=== PATIENT | male | born 1980 | race Asian ===

== ENCOUNTER 2019-10-19 15:05 | Outpatient (CLI) | payer OTHER | END 2019-10-19 15:06 | disposition home or self-care (01) | LOC: DTY/OP 15:05 | PROVIDERS: ATTEND Nurse Practitioner Family | DX: Z00.00 Encounter for general adult medical examination without abnormal findings (principal); E66.01 Morbid (severe) obesity due to excess calories; E78.5 Hyperlipidemia, unspecified; I10 Essential (primary) hypertension | CPT/HCPCS: 97802 ==

== ENCOUNTER 2023-08-26 11:43 | Outpatient (CLI) | payer OTHER | END 2023-08-26 11:44 | disposition home or self-care (01) | LOC: SCSRAD 11:43 | PROVIDERS: ATTEND Nurse Practitioner Family | DX: R05.1 Acute cough (principal) | CPT/HCPCS: 71046 ==